=== PATIENT | male | born 1935 | race Caucasian/White ===

== ENCOUNTER → 2017-05-22 | Outpatient (REF) | payer MEDICARE | LOC: M LAB REF 16:44 | PROVIDERS: ATTEND Surgery | DX: C44.319 Basal cell carcinoma of skin of other parts of face (principal) ==

== ENCOUNTER → 2017-06-03 | Outpatient (CLI) | payer MEDICARE ==
[~2017-06-03] VITALS: Ht 180.3 cm; Wt 92.1 kg
[~2017-06-03] MED LIST: NS 1,000 ML IV ONE
--- NOTE | 2017-06-03 07:47 | ROOR ---
Patient Name: Wayne Sutton Procedure Date: 06/03/2017 7:30 AM Date of : 1935 Age: 82 Room: [facility] Gender: Male Note Status: Finalized Procedure: Colonoscopy Indications: High risk colon cancer surveillance: Personal history of colonic polyps, Last colonoscopy: July 2013 Providers: Adan REED MD Referring MD: ZULEIKA RODRIGUEZ MD Requesting Provider: Medicines: Monitored Anesthesia Care Complications: No immediate complications. Procedure: Pre-Anesthesia Assessment: - The heart rate, respiratory rate, oxygen saturations, blood pressure, adequacy of pulmonary ventilation, and response to care were monitored throughout the procedure. The Colonoscope was introduced through the anus and advanced to the cecum, identified by appendiceal orifice and ileocecal valve. The colonoscopy was performed without difficulty. The patient tolerated the procedure well. The quality of the bowel preparation was good. Findings: The perianal and digital rectal examinations were normal. (Exam: Complete, Prep: Good or Excellent.) A 5 mm polyp was found in the sigmoid colon. The polyp was sessile. The polyp was removed with a cold snare. Resection and retrieval were complete. Multiple medium-mouthed diverticula were found in the sigmoid colon. Mild inflammation was found in the distal rectum. The exam was otherwise without abnormality on direct and retroflexion views. Impression: - One 5 mm polyp in the sigmoid colon, removed with a cold snare. Resected and retrieved. - Diverticulosis in the sigmoid colon. 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 - The examination was otherwise normal on direct and retroflexion views. Recommendation: - Repeat colonoscopy in 5 years for adenoma surveillance. - Telephone endoscopist for pathology results in 2 weeks. Adan Reed MD Adan REED MD 06/03/2017 7:46:30 AM This report has been signed electronically. Number of Addenda: 0 Note Initiated On: 06/03/2017 7:30 AM Estimated Blood Loss: Estimated blood loss: none.
[2017-06-03 08:05] VITALS: BP 133/69
== END | disposition home or self-care (01) ==
LOC: M OPP 07:01
PROVIDERS: ATTEND Internal Medicine Gastroenterology
DX: Z12.11 Encounter for screening for malignant neoplasm of colon (principal); D12.5 Benign neoplasm of sigmoid colon; K62.7 Radiation proctitis; K57.30 Diverticulosis of large intestine without perforation or abscess without bleeding; Z86.010 Personal history of colon polyps; K57.92 Diverticulitis of intestine, part unspecified, without perforation or abscess without bleeding; M19.90 Unspecified osteoarthritis, unspecified site; Z85.46 Personal history of malignant neoplasm of prostate; Z92.3 Personal history of irradiation; Z87.891 Personal history of nicotine dependence; Z88.2 Allergy status to sulfonamides

== ENCOUNTER 2021-05-23 16:41 | Emergency (ER) | payer MEDICARE ==
[~2021-05-23] VITALS: Ht 177.8 cm; Wt 93.2 kg
[2021-05-23 17:13] LABS: BASO % 0.7 % (0.0-1.0); EOS % 0.7 % (0.0-3.0); HEMATOCRIT 33.4 % (42.0-52.0); HEMOGLOBIN 10.5 g/dl (13.5-17.5); LYMPH # 1.2 10^3/uL (1.5-5.0); LYMPH % 20.5 % (24.0-44.0); MEAN CORPUSCULAR HEMOGLOBIN 26.3 pg (27.0-33.0); MEAN CORPUSCULAR HGB CONC 31.4 g/dl (32.0-36.5); MEAN CORPUSCULAR VOLUME 83.5 fl (80.0-96.0); MONO # 0.7 10^3/uL (0.0-0.8); MONO % 12.4 % (2.0-8.0); NEUTROPHILS # 3.7 10^3/uL (1.5-8.5); NEUTROPHILS % 65.4 % (36.0-66.0); PLATELET COUNT, AUTOMATED 335 10^3/uL (150-450); WHITE BLOOD COUNT 5.7 10^3/uL (4.0-10.0)
--- NOTE | 2021-05-23 17:15 | REP ---
INDICATION: CHEST PAIN. COMPARISON: 06/03/2007 TECHNIQUE: Portable FINDINGS: The technique utilized in obtaining the radiograph has magnified the cardiac silhouette and accentuated the interstitial markings. The superior mediastinal structures are midline. The cardiac silhouette is unremarkable in size, shape, and position. The diaphragmatic surfaces of the lungs are regular, and the costophrenic angles are clear. The pulmonary [place] are clear. The imaged osseous structures are intact. There is evidence of a hiatal hernia. IMPRESSION: There is no acute cardiopulmonary disease. <Electronically signed by Jarrett Upton > 05/23/21 [id number]
[2021-05-23 17:42] LABS: BLOOD UREA NITROGEN 32 MG/DL (7-18); CALCIUM LEVEL 8.8 MG/DL (8.8-10.2); CARBON DIOXIDE LEVEL 23 MEQ/L (21-32); CHLORIDE LEVEL 113 MEQ/L (98-107); CK-MB VALUE MASS 3.1 NG/ML (<3.6); CPK CREATINE PHOSPHOKINASE 177 U/L (39-308); CREATININE FOR GFR 1.24 MG/DL (0.70-1.30); GLOMERULAR FILTRATION RATE 59.3 (>35); GLUCOSE, FASTING 104 MG/DL (70-100); MB/CK RELATIVE INDEX 1.75 (< OR =4); POTASSIUM SERUM 4.5 MEQ/L (3.5-5.1); SODIUM LEVEL 144 MEQ/L (136-145); TROPONIN I < 0.02 NG/ML (< 0.10)
[2021-05-23] MEDS ORDERED: ASPIRIN 81 MG CHEW TABLET PO ONE (19:25)
[2021-05-23 23:38] LABS: CK-MB VALUE MASS 1.9 NG/ML (<3.6); CPK CREATINE PHOSPHOKINASE 143 U/L (39-308); MB/CK RELATIVE INDEX 1.33 (< OR =4); TROPONIN I < 0.02 NG/ML (< 0.10)
[2021-05-24 00:31] VITALS: BP 169/71
--- NOTE | 2021-05-24 17:56 | ECGEPIP ---
[facility] - ED Test Date: 2021-05-23 Pat Name: EMMA LEA Department: Room: - Gender: Male Patient Biller: : 1935 Requested By: JOHANA Valdovinos Order Number: [id number] Reading MD: Brionna Chambers Measurements Intervals [place] Rate: 62 P: -13 SC: 92 QRS: 23 QRSD: 86 T: 22 QT: 416 QTc: 422 Interpretive Statements Sinus rhythm with short SC No prior Electronically Signed on 05-24-2021 17:55:56 EDT by Brionna Chambers
--- NOTE | 2021-05-24 18:00 | ECGEPIP ---
[facility] - ED Test Date: 2021-05-23 Pat Name: EMMA LEA Department: Room: - Gender: Male Card Folder: JOSE MANUEL : 1935 Requested By: SAVANNA Dupree Order Number: [id number] Reading MD: Brionna Chambers Measurements Intervals [place] Rate: 52 P: 4 ND: 104 QRS: 28 QRSD: 84 T: 39 QT: 454 QTc: 422 Interpretive Statements Sinus bradycardia short ND decreased rate 05/23/21 Electronically Signed on 05-24-2021 18:00:07 EDT by Brionna Chambers
== END 2021-05-24 00:43 | disposition home or self-care (01) ==
LOC: M ED 16:41
DX: R07.89 Other chest pain (principal); R00.1 Bradycardia, unspecified; I51.9 Heart disease, unspecified; Z88.2 Allergy status to sulfonamides

== ENCOUNTER → 2021-08-28 | Outpatient (CLI) | payer MEDICARE ==
[2021-08-28 16:12] LABS: BASO % 0.7 % (0.0-1.0); EOS # 0.1 10^3/uL (0.0-0.5); HEMATOCRIT 41.3 % (42.0-52.0); HEMOGLOBIN 13.5 g/dl (13.5-17.5); LYMPH # 1.5 10^3/uL (1.5-5.0); LYMPH % 24.8 % (24.0-44.0); MEAN CORPUSCULAR HGB CONC 32.7 g/dl (32.0-36.5); MEAN CORPUSCULAR VOLUME 91.8 fl (80.0-96.0); MONO # 0.8 10^3/uL (0.0-0.8); MONO % 14.1 % (2.0-8.0); NEUTROPHILS # 3.5 10^3/uL (1.5-8.5); NEUTROPHILS % 59.2 % (36.0-66.0); PLATELET COUNT, AUTOMATED 307 10^3/uL (150-450)
== END ==
LOC: M WUC 10:46
PROVIDERS: ATTEND Internal Medicine
DX: D64.9 Anemia, unspecified (principal)

== ENCOUNTER → 2022-04-29 | Outpatient (CLI) | payer MEDICARE ==
[2022-04-29 16:13] LABS: HEMOGLOBIN 9.3 g/dl (13.5-17.5); MEAN CORPUSCULAR HEMOGLOBIN 26.9 pg (27.0-33.0); MEAN CORPUSCULAR VOLUME 89.6 fl (80.0-96.0); PLATELET COUNT, AUTOMATED 369 10^3/uL (150-450); RED BLOOD COUNT 3.46 10^6/uL (4.30-6.10); WHITE BLOOD COUNT 5.5 10^3/uL (4.0-10.0)
== END ==
LOC: M WUC 11:39
PROVIDERS: ATTEND Internal Medicine Cardiovascular Disease
DX: D64.9 Anemia, unspecified (principal)

== ENCOUNTER → 2022-05-15 | Outpatient (CLI) | payer MEDICARE ==
[~2022-05-15] MED LIST changes: +B-12100010 PO; +CEFD300C41 PO; +FERR1TAB8 PO; +METO1TAB87 PO; +METR-265 PO; -NS 1,000 ML IV ONE; +PANT40TA29 PO; +PROT1TAB2 PO; +RISATAB3 PO; +VALS40TA9 PO; +VALS80TA PO
[2022-05-15 13:19] LABS: HEMATOCRIT 34.6 % (42.0-52.0); HEMOGLOBIN 10.5 g/dl (13.5-17.5); MEAN CORPUSCULAR HEMOGLOBIN 27.3 pg (27.0-33.0); MEAN CORPUSCULAR HGB CONC 30.3 g/dl (32.0-36.5); MEAN CORPUSCULAR VOLUME 90.1 fl (80.0-96.0); PLATELET COUNT, AUTOMATED 327 10^3/uL (150-450); RED BLOOD COUNT 3.84 10^6/uL (4.30-6.10); WHITE BLOOD COUNT 6.8 10^3/uL (4.0-10.0)
== END ==
LOC: M WUC 10:57
PROVIDERS: ATTEND Internal Medicine Cardiovascular Disease
DX: D64.9 Anemia, unspecified (principal)

== ENCOUNTER 2022-05-16 10:24 | Inpatient (IN) | payer MEDICARE ==
[~2022-05-16] VITALS: Ht 177.8 cm; Wt 88.0 kg
[2022-05-16] MEDS: LACTOBACILLUS ACIDOPHILUS CAP (BACID) PO SCH (09:00)
[~2022-05-16 10:24] MED LIST changes: -B-12100010 PO; -CEFD300C41 PO; +CEFDINIR 300 MG CAP (OMNICEF) PO SCH; -FERR1TAB8 PO; -METO1TAB87 PO; -METR-265 PO; -PANT40TA29 PO; -PROT1TAB2 PO; -RISATAB3 PO; -VALS40TA9 PO; -VALS80TA PO
[2022-05-16] MEDS ORDERED: B-12100010 PO (10:34)
[2022-05-16] MEDS ORDERED: METO1TAB87 PO (10:34)
[2022-05-16] MEDS ORDERED: PANT40TA29 PO (10:34)
[2022-05-16 11:07] LABS: BASO % 0.6 % (0.0-1.0); EOS # 0.1 10^3/uL (0.0-0.5); EOS % 1.2 % (0.0-3.0); HEMATOCRIT 37.2 % (42.0-52.0); HEMOGLOBIN 11.7 g/dl (13.5-17.5); LYMPH # 1.4 10^3/uL (1.5-5.0); MEAN CORPUSCULAR HEMOGLOBIN 27.7 pg (27.0-33.0); MEAN CORPUSCULAR HGB CONC 31.5 g/dl (32.0-36.5); MEAN CORPUSCULAR VOLUME 88.2 fl (80.0-96.0); MONO # 0.8 10^3/uL (0.0-0.8); MONO % 12.8 % (2.0-8.0); NEUTROPHILS # 4.1 10^3/uL (1.5-8.5); NEUTROPHILS % 63.1 % (36.0-66.0); PLATELET COUNT, AUTOMATED 314 10^3/uL (150-450); RED BLOOD COUNT 4.22 10^6/uL (4.30-6.10); WHITE BLOOD COUNT 6.5 10^3/uL (4.0-10.0)
[2022-05-16 11:31] LABS: CALCIUM LEVEL 9.5 MG/DL (8.8-10.2); CREATININE FOR GFR 1.26 MG/DL (0.70-1.30); POTASSIUM SERUM 4.1 MEQ/L (3.5-5.1)
[2022-05-16 11:34] LABS: CK-MB VALUE MASS 1.2 NG/ML (<3.6)
[2022-05-16] MEDS ORDERED: ISOVUE-370 76% 100ML VIAL As Ordered ONE (12:41)
[2022-05-16] MEDS ORDERED: NS 500 ML IV ONE (12:45)
[2022-05-16 13:41] LABS: RSV AMPLIFICATION NEGATIVE (NEGATIVE)
[2022-05-16] MEDS ORDERED: ACETAMINOPHEN TAB 650MG DOSE (2X325MG) PO PRN (13:50)
[2022-05-16] MEDS ORDERED: metroNIDAZOLE (FLAGYL) 500MG TABLET PO SCH (14:00)
[2022-05-16] MEDS ORDERED: hydrALAZINE 20MG/ML 1ML VIAL (J0360 PER 20MG) IV PRN (14:05)
[2022-05-16] MEDS ORDERED: DICYCLOMINE 10 MG CAP PO PRN (14:15)
[2022-05-16] MEDS ORDERED: VALS80TA PO (14:29)
[2022-05-16] MEDS ORDERED: FERR1TAB8 PO (14:29)
[2022-05-16] MEDS ORDERED: HOME MED LIST COMPLETE! XX SCH (14:30)
[2022-05-16 14:56] LABS: HEMATOCRIT 33.9 % (42.0-52.0); HEMOGLOBIN 10.7 g/dl (13.5-17.5)
[2022-05-16] MEDS ORDERED: NS 1,000 ML IV SCH (15:00)
[2022-05-16 15:26] LABS: IRON (FE) 42 UG/DL (65-175); PERCENT SATURATION 12.2 % (19.7-50.0); TOTAL IRON BINDING CAPACITY 345 UG/DL (250-450)
[2022-05-16] MEDS: D5W/0.9% SODIUM CHLORIDE 1,000 ML IV SCH (15:51)
[2022-05-16] MEDS ORDERED: lisinopriL 5 MG TAB PO SCH (16:00)
[2022-05-16] MEDS: SUCRALFATE 1 GM TAB PO SCH ×2 (16:29→21:24)
[2022-05-16 16:32] LABS: CK-MB VALUE MASS 1.4 NG/ML (<3.6); MB/CK RELATIVE INDEX 2.75 (< OR =4)
[2022-05-16 17:36] LABS: FOLATE 15.7 NG/ML (>5.4); VITAMIN B12 LEVEL 716 PG/ML (247-911)
[2022-05-16 17:40] LABS: HEMATOCRIT 34.9 % (42.0-52.0); HEMOGLOBIN 10.9 g/dl (13.5-17.5)
[2022-05-16 18:22] LABS: C REACTIVE PROTEIN QUANTITATIV < 0.30 MG/DL (0.00-0.30)
[2022-05-16] MEDS ORDERED: cefTRIAXone SOD 1 GM in D5W MINI-BAG PLUS 50 ML IV SCH (20:00)
[2022-05-16] MEDS: PANTOPRAZOLE 40MG VIAL IV SCH (20:15)
[2022-05-16] MEDS: metroNIDAZOLE 500 MG in IV 1 EA IV SCH (21:24)
[2022-05-16 22:40] LABS: HEMATOCRIT 31.5 % (42.0-52.0)
[2022-05-16 23:04] LABS: CK-MB VALUE MASS 1.6 NG/ML (<3.6); MB/CK RELATIVE INDEX 2.81 (< OR =4)
[2022-05-16 23:06] VITALS: BP 168/74
[2022-05-17 00:28] VITALS: BP 158/71
[2022-05-17] MEDS: D5W/0.9% SODIUM CHLORIDE 1,000 ML IV SCH (00:46)
[2022-05-17 04:24] VITALS: BP 178/81
[2022-05-17 05:38] LABS: HEMATOCRIT 32.3 % (42.0-52.0); HEMOGLOBIN 10.1 g/dl (13.5-17.5); MEAN CORPUSCULAR HEMOGLOBIN 27.3 pg (27.0-33.0); MEAN CORPUSCULAR HGB CONC 31.3 g/dl (32.0-36.5); MEAN CORPUSCULAR VOLUME 87.3 fl (80.0-96.0); PLATELET COUNT, AUTOMATED 277 10^3/uL (150-450); WHITE BLOOD COUNT 4.9 10^3/uL (4.0-10.0)
[2022-05-17] MEDS: metroNIDAZOLE 500 MG in IV 1 EA IV SCH (05:45)
[2022-05-17 05:59] LABS: BLOOD UREA NITROGEN 18 MG/DL (7-18); C REACTIVE PROTEIN QUANTITATIV 0.32 MG/DL (0.00-0.30); CALCIUM LEVEL 7.7 MG/DL (8.8-10.2); CARBON DIOXIDE LEVEL 25 MEQ/L (21-32); CHLORIDE LEVEL 111 MEQ/L (98-107); CREATININE FOR GFR 1.02 MG/DL (0.70-1.30); GLOMERULAR FILTRATION RATE > 60.0 (>35); GLUCOSE, FASTING 107 MG/DL (70-100); POTASSIUM SERUM 3.3 MEQ/L (3.5-5.1); SODIUM LEVEL 140 MEQ/L (136-145)
[2022-05-17] MEDS ORDERED: POTASSIUM CHLORIDE 10MEQ SR TABLET PO ONE (07:15)
[2022-05-17 07:58] VITALS: BP 160/58
[2022-05-17 08:22] LABS: FERRITIN 39 NG/ML (26-388)
[2022-05-17] MEDS: PANTOPRAZOLE 40MG VIAL IV SCH (08:24)
[2022-05-17] MEDS: LACTOBACILLUS ACIDOPHILUS CAP (BACID) PO SCH (08:24)
[2022-05-17] MEDS: SUCRALFATE 1 GM TAB PO SCH ×2 (08:24→13:00)
[2022-05-17] MEDS ORDERED: CEFD300C41 PO (11:19)
[2022-05-17] MEDS ORDERED: RISATAB3 PO (11:19)
[2022-05-17] MEDS ORDERED: METR-265 PO (11:19)
[2022-05-17 11:55] VITALS: BP 121/64
[2022-05-17] MEDS ORDERED: VALS40TA9 PO (11:58)
[2022-05-17] MEDS ORDERED: PROT1TAB2 PO (11:59)
[2022-05-17 12:00] VITALS: BP 120/70
[2022-05-17] MEDS ORDERED: **hydrALAZINE HCL** 25 MG TAB PO SCH (12:00)
== END 2022-05-17 15:08 | disposition home or self-care (01) | DRG 392 ==
LOC: M ED 10:24 → M ED INP 14:19 → ENRESERV 21:56 → M PCU 23:05
PROVIDERS: ADMIT Internal Medicine; ATTEND Internal Medicine
DX: K52.9 Noninfective gastroenteritis and colitis, unspecified (principal); K92.2 Gastrointestinal hemorrhage, unspecified; K92.1 Melena; D64.9 Anemia, unspecified; I10 Essential (primary) hypertension; E61.1 Iron deficiency; Z85.46 Personal history of malignant neoplasm of prostate; Z92.3 Personal history of irradiation; Z90.49 Acquired absence of other specified parts of digestive tract; Z96.652 Presence of left artificial knee joint; Z87.891 Personal history of nicotine dependence; Z20.822 Contact with and (suspected) exposure to COVID-19; I16.0 Hypertensive urgency; Z79.899 Other long term (current) drug therapy; Z88.2 Allergy status to sulfonamides

== ENCOUNTER 2022-06-03 23:02 | Emergency (ER) | payer MEDICARE ==
[~2022-06-03] VITALS: Ht 177.8 cm; Wt 92.3 kg
[2022-06-04 01:55] LABS: BASO % 0.4 % (0.0-1.0); EOS # 0.1 10^3/uL (0.0-0.5); HEMATOCRIT 36.7 % (42.0-52.0); HEMOGLOBIN 11.8 g/dl (13.5-17.5); LYMPH # 1.3 10^3/uL (1.5-5.0); LYMPH % 14.4 % (24.0-44.0); MEAN CORPUSCULAR HEMOGLOBIN 28.4 pg (27.0-33.0); MEAN CORPUSCULAR HGB CONC 32.2 g/dl (32.0-36.5); MEAN CORPUSCULAR VOLUME 88.4 fl (80.0-96.0); MONO % 10.7 % (2.0-8.0); NEUTROPHILS # 6.6 10^3/uL (1.5-8.5); NEUTROPHILS % 73.3 % (36.0-66.0); PLATELET COUNT, AUTOMATED 317 10^3/uL (150-450); RED BLOOD COUNT 4.15 10^6/uL (4.30-6.10)
[2022-06-04 02:26] LABS: ALBUMIN 3.6 GM/DL (3.2-5.2); ALT/SGPT 18 U/L (12-78); BILIRUBIN,DIRECT < 0.1 MG/DL (0.0-0.2); BILIRUBIN,TOTAL 0.4 MG/DL (0.2-1.0); BLOOD UREA NITROGEN 28 MG/DL (7-18); CALCIUM LEVEL 9.1 MG/DL (8.8-10.2); CARBON DIOXIDE LEVEL 28 MEQ/L (21-32); CHLORIDE LEVEL 109 MEQ/L (98-107); CREATININE FOR GFR 1.36 MG/DL (0.70-1.30); GLUCOSE, FASTING 118 MG/DL (70-100); LIPASE 207 U/L (73-393); POTASSIUM SERUM 4.7 MEQ/L (3.5-5.1); SODIUM LEVEL 139 MEQ/L (136-145); TOTAL PROTEIN 6.5 GM/DL (6.4-8.2)
[2022-06-04] MEDS ORDERED: NS 1,000 ML IV ONE (06:20)
[2022-06-04] MEDS ORDERED: ISOVUE-370 76% 100ML VIAL As Ordered ONE (06:30)
[2022-06-04 11:30] VITALS: BP 158/74
[2022-06-04] MEDS ORDERED: METOPROLOL TART 25 MG TABLET PO ONE (11:40)
== END 2022-06-04 12:00 | disposition home or self-care (01) ==
LOC: M ED 23:02
DX: K50.10 Crohn's disease of large intestine without complications (principal); E86.0 Dehydration; K40.90 Unilateral inguinal hernia, without obstruction or gangrene, not specified as recurrent; K57.30 Diverticulosis of large intestine without perforation or abscess without bleeding; I25.10 Atherosclerotic heart disease of native coronary artery without angina pectoris; K44.9 Diaphragmatic hernia without obstruction or gangrene; I10 Essential (primary) hypertension; D50.9 Iron deficiency anemia, unspecified; Z85.46 Personal history of malignant neoplasm of prostate; Z87.891 Personal history of nicotine dependence; Z79.899 Other long term (current) drug therapy; Z88.2 Allergy status to sulfonamides
CPT/HCPCS: 74177; 80048; 80076; 81001; 83690; 85025; 87426; 93005; 99285; Q9967

== ENCOUNTER → 2022-06-03 | Outpatient (CLI) | payer MEDICARE ==
[~2022-06-03] MED LIST changes: +B-12100010 PO; +CEFD300C41 PO; -CEFDINIR 300 MG CAP (OMNICEF) PO SCH; +FERR1TAB8 PO; +METO1TAB87 PO; +METR-265 PO; +PANT40TA29 PO; +PROT1TAB2 PO; +RISATAB3 PO; +VALS40TA9 PO; +VALS80TA PO
[2022-06-03 16:31] LABS: HEMATOCRIT 37.2 % (42.0-52.0); HEMOGLOBIN 11.6 g/dl (13.5-17.5); MEAN CORPUSCULAR HEMOGLOBIN 27.9 pg (27.0-33.0); MEAN CORPUSCULAR HGB CONC 31.2 g/dl (32.0-36.5); MEAN CORPUSCULAR VOLUME 89.4 fl (80.0-96.0); PLATELET COUNT, AUTOMATED 304 10^3/uL (150-450); RED BLOOD COUNT 4.16 10^6/uL (4.30-6.10); WHITE BLOOD COUNT 5.7 10^3/uL (4.0-10.0)
== END ==
LOC: M WUC 13:02
PROVIDERS: ATTEND Internal Medicine Cardiovascular Disease
DX: D64.9 Anemia, unspecified (principal)

== ENCOUNTER → 2022-06-05 | Outpatient (REF) | payer MEDICARE | LOC: M LAB REF 11:32 | PROVIDERS: ATTEND Physician Assistant | DX: K50.10 Crohn's disease of large intestine without complications (principal) ==

== ENCOUNTER → 2022-06-13 | Outpatient (CLI) | payer MEDICARE | LOC: M LABSMTC 10:39 | PROVIDERS: ATTEND Anesthesiology | DX: Z01.812 Encounter for preprocedural laboratory examination (principal); Z20.822 Contact with and (suspected) exposure to COVID-19 ==

== ENCOUNTER 2022-06-18 09:02 | Day surgery (SDC) | payer MEDICARE ==
[~2022-06-18] VITALS: Ht 182.9 cm; Wt 87.5 kg
[~2022-06-18 09:02] MED LIST changes: +LIDOCAINE 2% 100MG/5ML SDV (FOR ANES.) As Ordered ONE; +NS 1,000 ML IV ONE; +fentaNYL 100 MCG/2 ML INJECTION As Ordered ONE; +propofoL 500 MG/50 ML VIAL As Ordered ONE
[2022-06-18 11:20] VITALS: BP 159/67
== END 2022-06-18 11:40 | disposition home or self-care (01) ==
LOC: M OPP 09:02
PROVIDERS: ATTEND Internal Medicine Gastroenterology
DX: K63.5 Polyp of colon (principal); K56.2 Volvulus; K57.30 Diverticulosis of large intestine without perforation or abscess without bleeding; K64.8 Other hemorrhoids; K62.7 Radiation proctitis; R93.3 Abnormal findings on diagnostic imaging of other parts of digestive tract; K44.9 Diaphragmatic hernia without obstruction or gangrene; D62 Acute posthemorrhagic anemia; I10 Essential (primary) hypertension; N40.0 Benign prostatic hyperplasia without lower urinary tract symptoms; Z79.899 Other long term (current) drug therapy; Z88.2 Allergy status to sulfonamides; Z87.19 Personal history of other diseases of the digestive system; Z85.46 Personal history of malignant neoplasm of prostate; Z92.21 Personal history of antineoplastic chemotherapy; Z98.890 Other specified postprocedural states; Z87.891 Personal history of nicotine dependence
CPT/HCPCS: 43235; 45380; 45385; 88305; J3010

== ENCOUNTER → 2022-09-12 | Outpatient (CLI) | payer MEDICARE ==
[~2022-09-12] MED LIST changes: -LIDOCAINE 2% 100MG/5ML SDV (FOR ANES.) As Ordered ONE; +METO25TA4 PO; -NS 1,000 ML IV ONE; -fentaNYL 100 MCG/2 ML INJECTION As Ordered ONE; -propofoL 500 MG/50 ML VIAL As Ordered ONE
== END ==
LOC: M LABSMTC 09:01
PROVIDERS: ATTEND Anesthesiology
DX: Z01.812 Encounter for preprocedural laboratory examination (principal)

== ENCOUNTER 2022-09-17 10:34 | Day surgery (SDC) | payer MEDICARE ==
[~2022-09-17] VITALS: Ht 177.8 cm; Wt 88.2 kg
[~2022-09-17 10:34] MED LIST changes: +ceFAZolin SOD 2 GM in IV 1 EA IV ONE
[2022-09-17] MEDS ORDERED: LR 1,000 ML IV SCH (10:55)
[2022-09-17] MEDS ORDERED: LIDOCAINE 2% 100MG/5ML SDV (FOR ANES.) As Ordered ONE (13:11)
[2022-09-17] MEDS ORDERED: ROCURONIUM BROMIDE 50 MG/5 ML VIAL As Ordered ONE (13:11)
[2022-09-17] MEDS ORDERED: ONDANSETRON 4MG 2ML VIAL As Ordered ONE (13:11)
[2022-09-17] MEDS ORDERED: SUGAMMADEX SODIUM 500 MG/5 ML VIAL (BRIDION) As Ordered ONE (13:11)
[2022-09-17] MEDS ORDERED: propofoL 200 MG/20 ML VIAL As Ordered ONE (13:11)
[2022-09-17] MEDS ORDERED: dexameTHASONE 4 MG/ML 1ML VIAL (J1100 PER 1MG) As Ordered ONE (13:11)
[2022-09-17] MEDS ORDERED: KETOROLAC 60MG 2ML VIAL As Ordered ONE (13:12)
[2022-09-17] MEDS ORDERED: BUPIVACAINE/EPIN 0.25% 30 ML VIAL As Ordered ONE (13:38)
[2022-09-17] MEDS ORDERED: MIDAZOLAM INJ 2MG/2ML VIAL (J2250 PER 1MG) As Ordered ONE (13:40)
[2022-09-17] MEDS ORDERED: fentaNYL 100 MCG/2 ML INJECTION As Ordered ONE ×2 (13:41→14:38)
[2022-09-17] MEDS ORDERED: ePHEDrine SULFATE 25 MG/5 ML(5MG/ML) SYRINGE As Ordered ONE (14:36)
[2022-09-17] MEDS ORDERED: ACETAMINOPHEN 1000MG 100ML IV BTL (OFIRMEV) (J0131 PER 10MG) As Ordered ONE (14:39)
[2022-09-17] MEDS ORDERED: ONDANSETRON 4MG 2ML VIAL IV PRN (15:15)
[2022-09-17] MEDS ORDERED: hydrALAZINE 20MG/ML 1ML VIAL (J0360 PER 20MG) As Ordered ONE (15:24)
[2022-09-17] MEDS: oxyCODONE 5MG TAB PO PRN ×2 (15:37→16:09)
[2022-09-17] MEDS: fentaNYL 100 MCG/2 ML INJECTION IV PRN ×3 (15:59→16:12)
[2022-09-17] MEDS ORDERED: NORCO, ANEXSIA 5/325MG TABLET (HYDROcodone/ACETAMINOPHEN) PO PRN (16:20)
[2022-09-17 16:47] VITALS: BP 141/69
== END 2022-09-17 17:31 | disposition home or self-care (01) ==
LOC: M SDC 10:34
PROVIDERS: ATTEND Surgery
DX: K40.30 Unilateral inguinal hernia, with obstruction, without gangrene, not specified as recurrent (principal); I10 Essential (primary) hypertension; R19.7 Diarrhea, unspecified; Z85.46 Personal history of malignant neoplasm of prostate; Z92.3 Personal history of irradiation; Z87.891 Personal history of nicotine dependence; Z88.2 Allergy status to sulfonamides; N40.0 Benign prostatic hyperplasia without lower urinary tract symptoms; Z79.899 Other long term (current) drug therapy
CPT/HCPCS: 49650; 88304; C1781; J0131; J0690; J1100; J1885; J2250; J2405; J3010; S2900

== ENCOUNTER 2023-04-13 07:31 | Observation (INO) | payer MEDICARE ==
[~2023-04-13] VITALS: Ht 177.8 cm; Wt 91.4 kg
[~2023-04-13 07:31] MED LIST changes: -ceFAZolin SOD 2 GM in IV 1 EA IV ONE
[2023-04-13] MEDS ORDERED: PANT40TA29 PO (07:45)
[2023-04-13] MEDS ORDERED: SUCR1TA PO (07:45)
[2023-04-13 08:22] LABS: BASO % 0.4 % (0.0-1.0); EOS # 0.1 10^3/uL (0.0-0.5); EOS % 1.7 % (0.0-3.0); HEMATOCRIT 29.6 % (42.0-52.0); HEMOGLOBIN 9.1 g/dl (13.5-17.5); LYMPH # 1.1 10^3/uL (1.5-5.0); LYMPH % 13.9 % (24.0-44.0); MEAN CORPUSCULAR HEMOGLOBIN 24.5 pg (27.0-33.0); MEAN CORPUSCULAR HGB CONC 30.7 g/dl (32.0-36.5); MEAN CORPUSCULAR VOLUME 79.8 fl (80.0-96.0); MONO # 0.9 10^3/uL (0.0-0.8); MONO % 12.2 % (2.0-8.0); NEUTROPHILS # 5.4 10^3/uL (1.5-8.5); NEUTROPHILS % 71.5 % (36.0-66.0); PLATELET COUNT, AUTOMATED 273 10^3/uL (150-450); RED BLOOD COUNT 3.71 10^6/uL (4.30-6.10); WHITE BLOOD COUNT 7.5 10^3/uL (4.0-10.0)
[2023-04-13 08:33] LABS: INR 0.99; PARTIAL THROMBOPLASTIN TIME 29.7 SECONDS (24.8-34.2); PROTHROMBIN TIME 13.3 SECONDS (12.5-14.5)
[2023-04-13 08:52] LABS: LIPASE 42 U/L (12-53)
[2023-04-13 08:53] LABS: RSV AMPLIFICATION NEGATIVE (NEGATIVE)
[2023-04-13 08:54] LABS: ALBUMIN 3.3 G/DL (3.2-5.2); ALKALINE PHOSPHATASE 50 U/L (46-116); ALT/SGPT 11 U/L (7.0-40); AST/SGOT 19 U/L (<34); BILIRUBIN,DIRECT 0.2 MG/DL (<0.4); BILIRUBIN,TOTAL 0.6 MG/DL (0.3-1.2); BLOOD UREA NITROGEN 28 MG/DL (9-23); CALCIUM LEVEL 8.4 MG/DL (8.3-10.6); CARBON DIOXIDE LEVEL 24 MMOL/L (20-31); CHLORIDE LEVEL 110 MMOL/L (98-107); CREATININE FOR GFR 1.19 MG/DL (0.70-1.30); GLOMERULAR FILTRATION RATE > 60.0 (>35); GLUCOSE, FASTING 97 MG/DL (74-106); POTASSIUM SERUM 3.8 MMOL/L (3.5-5.1); SODIUM LEVEL 141 MMOL/L (136-145); TOTAL PROTEIN 5.8 G/DL (5.7-8.2)
[2023-04-13 09:25] LABS: IRON (FE) 37 UG/DL (65-175); TOTAL IRON BINDING CAPACITY 370 UG/DL (250-425)
[2023-04-13 09:27] LABS: FERRITIN 14.3 NG/ML (10.5-307.3); FOLATE 17.49 NG/ML (>5.4); VITAMIN B12 LEVEL 847 PG/ML (211-911)
[2023-04-13] MEDS ORDERED: amLODIPine 5 MG TAB PO ONE (09:35)
[2023-04-13] MEDS: GASTROGRAFIN SOLUTION 30ML PO SCH ×2 (09:48→10:18)
[2023-04-13] MEDS ORDERED: ISOVUE-370 76% 100ML VIAL As Ordered ONE (11:47)
[2023-04-13] MEDS ORDERED: ILEVRO OD (16:16)
[2023-04-13] MEDS ORDERED: HOME MED LIST COMPLETE! XX SCH (16:20)
[2023-04-13 16:25] LABS: HEMATOCRIT 29.2 % (42.0-52.0)
[2023-04-13 16:32] VITALS: BP 170/90
[2023-04-13] MEDS: SUCRALFATE 1 GM TAB PO SCH ×2 (17:48→21:16)
[2023-04-13] MEDS: PANTOPRAZOLE 40MG TAB (PROTONIX) PO SCH ×2 (17:48→21:16)
[2023-04-13] MEDS: NS 1,000 ML IV SCH (17:49)
[2023-04-13] MEDS ORDERED: IRON SUCROSE 200 MG in NS 100 ML IV ONE (18:00)
[2023-04-13 18:42] VITALS: BP 174/80
[2023-04-13 20:00] VITALS: BP 180/84
[2023-04-13] MEDS: amLODIPine 5 MG TAB PO SCH (21:16)
[2023-04-13 22:46] LABS: HEMATOCRIT 28.8 % (42.0-52.0); HEMOGLOBIN 8.9 g/dl (13.5-17.5)
[2023-04-14] VITALS: BP 178/68
[2023-04-14] MEDS: hydrALAZINE 20MG/ML 1ML VIAL IV PRN ×2 (00:27→04:37)
[2023-04-14] MEDS: NS 1,000 ML IV SCH (02:10)
[2023-04-14 04:00] VITALS: BP 174/72
[2023-04-14 05:50] VITALS: BP 184/72
[2023-04-14] MEDS ORDERED: VALSARTAN 80 MG TAB (DIOVAN) PO ONE (06:00)
[2023-04-14 06:47] LABS: HEMATOCRIT 29.5 % (42.0-52.0); HEMOGLOBIN 9.2 g/dl (13.5-17.5); MEAN CORPUSCULAR HEMOGLOBIN 24.8 pg (27.0-33.0); MEAN CORPUSCULAR HGB CONC 31.2 g/dl (32.0-36.5); MEAN CORPUSCULAR VOLUME 79.5 fl (80.0-96.0); PLATELET COUNT, AUTOMATED 262 10^3/uL (150-450); RED BLOOD COUNT 3.71 10^6/uL (4.30-6.10); WHITE BLOOD COUNT 5.3 10^3/uL (4.0-10.0)
[2023-04-14 07:13] LABS: BLOOD UREA NITROGEN 15 MG/DL (9-23); CALCIUM LEVEL 8.4 MG/DL (8.3-10.6); CARBON DIOXIDE LEVEL 24 MMOL/L (20-31); CHLORIDE LEVEL 108 MMOL/L (98-107); CREATININE FOR GFR 0.99 MG/DL (0.70-1.30); GLOMERULAR FILTRATION RATE > 60.0 (>35); GLUCOSE, FASTING 90 MG/DL (74-106); MAGNESIUM LEVEL 1.8 MG/DL (1.8-2.4); PHOSPHORUS LEVEL 2.9 MG/DL (2.4-5.1); POTASSIUM SERUM 3.3 MMOL/L (3.5-5.1); SODIUM LEVEL 140 MMOL/L (136-145)
[2023-04-14 07:27] VITALS: BP 156/52
[2023-04-14] MEDS: SUCRALFATE 1 GM TAB PO SCH ×2 (07:38→11:12)
[2023-04-14] MEDS: PANTOPRAZOLE 40MG TAB (PROTONIX) PO SCH (07:38)
[2023-04-14 07:39] VITALS: BP 156/52
[2023-04-14] MEDS: amLODIPine 5 MG TAB PO SCH (07:39)
[2023-04-14] MEDS ORDERED: FERR32TA PO (08:31)
[2023-04-14] MEDS ORDERED: AMLO1TAB24 PO (08:31)
[2023-04-14] MEDS ORDERED: METOPROLOL TART 50 MG TAB PO SCH (09:00)
[2023-04-14] MEDS ORDERED: POTASSIUM CHLORIDE 10MEQ SR TABLET PO SCH (09:00)
[2023-04-14] MEDS ORDERED: FERROUS GLUCONATE 324 MG TAB PO SCH (09:00)
[2023-04-14] MEDS ORDERED: hydrALAZINE 20MG/ML 1ML VIAL IV PRN (10:00)
== END 2023-04-14 12:39 | disposition home or self-care (01) ==
LOC: M ED 07:31 → M ED INP 07:32 → INTOOBSV 15:35 → UNDOADMOB 15:35 → M PCU 16:32 → M ED INP 16:32
PROVIDERS: ADMIT Internal Medicine; ATTEND Internal Medicine
DX: K92.2 Gastrointestinal hemorrhage, unspecified (principal); K57.30 Diverticulosis of large intestine without perforation or abscess without bleeding; D50.9 Iron deficiency anemia, unspecified; I10 Essential (primary) hypertension; K21.9 Gastro-esophageal reflux disease without esophagitis; Z79.899 Other long term (current) drug therapy
CPT/HCPCS: 36415; 71045; 74177; 80048; 80053; 82248; 82607; 82728; 82746; 83550; 83605; 83690; 83735; 84100; 85014; 85018; 85025; 85027; 85384; 85610; 85730; 86850; 86900; 86901; 87507; 87631; 93005; 93041; 94760; 96361; 96374; 96376; 97161; 99285; G0378; J0360; J1756; Q9963; Q9967

== ENCOUNTER → 2023-04-18 | Outpatient (REF) | payer MEDICARE ==
[~2023-04-18] MED LIST changes: +AMLO1TAB24 PO; +FERR32TA PO; +ILEVRO OD; +SUCR1TA PO
[2023-04-18 17:35] LABS: HEMATOCRIT 32.3 % (42.0-52.0); HEMOGLOBIN 9.9 g/dl (13.5-17.5); MEAN CORPUSCULAR HEMOGLOBIN 25.1 pg (27.0-33.0); MEAN CORPUSCULAR HGB CONC 30.7 g/dl (32.0-36.5); MEAN CORPUSCULAR VOLUME 81.8 fl (80.0-96.0); PLATELET COUNT, AUTOMATED 322 10^3/uL (150-450); RED BLOOD COUNT 3.95 10^6/uL (4.30-6.10); WHITE BLOOD COUNT 6.2 10^3/uL (4.0-10.0)
[2023-04-18 17:57] LABS: ALBUMIN 3.6 G/DL (3.2-5.2); ALKALINE PHOSPHATASE 50 U/L (46-116); ALT/SGPT 14 U/L (7.0-40); AST/SGOT 14 U/L (<34); BILIRUBIN,TOTAL 0.4 MG/DL (0.3-1.2); BLOOD UREA NITROGEN 25 MG/DL (9-23); CALCIUM LEVEL 8.7 MG/DL (8.3-10.6); CARBON DIOXIDE LEVEL 27 MMOL/L (20-31); CHLORIDE LEVEL 108 MMOL/L (98-107); CREATININE FOR GFR 1.22 MG/DL (0.70-1.30); GLOMERULAR FILTRATION RATE > 60.0 (>35); GLUCOSE, FASTING 94 MG/DL (74-106); SODIUM LEVEL 141 MMOL/L (136-145); TOTAL IRON BINDING CAPACITY 396 UG/DL (250-425); TOTAL PROTEIN 6.2 G/DL (5.7-8.2)
[2023-04-18 17:58] LABS: IRON (FE) 42 UG/DL (65-175); PERCENT SATURATION 10.6 % (19.7-50.0)
[2023-04-18 17:59] LABS: FOLATE 13.2 NG/ML (>5.4)
[2023-04-18 18:00] LABS: VITAMIN B12 LEVEL 1077 PG/ML (211-911)
[2023-04-18 19:06] LABS: ANISOCYTOSIS 4+; ATYPICAL LYMPH 9 % (0-5); EOSINOPHILS 1 % (0-3); LYMPHOCYTES 25 % (16-44); MONOCYTES 8 % (0-5); NEUTROPHILS 55 % (28-66); PLATELET ESTIMATE NORMAL (NORMAL)
[2023-04-18 19:07] LABS: POIKILOCYTOSIS 2+
== END ==
LOC: M LABWUC 16:32
PROVIDERS: ATTEND Internal Medicine Gastroenterology
DX: D50.9 Iron deficiency anemia, unspecified (principal); R19.7 Diarrhea, unspecified

== ENCOUNTER 2023-04-29 09:40 | Day surgery (SDC) | payer MEDICARE ==
[~2023-04-29] VITALS: Ht 177.8 cm; Wt 89.8 kg
[~2023-04-29 09:40] MED LIST changes: +NS 1,000 ML IV ONE
[2023-04-29] MEDS ORDERED: LIDOCAINE 2% 100MG/5ML SDV (FOR ANES.) As Ordered ONE (11:59)
[2023-04-29] MEDS ORDERED: propofoL 200 MG/20 ML VIAL As Ordered ONE (11:59)
[2023-04-29] MEDS ORDERED: GLYCOPYRROLATE INJ 0.2 MG/ML 2 ML VIAL As Ordered ONE (12:03)
[2023-04-29 12:55] VITALS: BP 166/77
== END 2023-04-29 13:30 | disposition home or self-care (01) ==
LOC: M OPP 09:40
PROVIDERS: ATTEND Internal Medicine Gastroenterology
DX: K57.30 Diverticulosis of large intestine without perforation or abscess without bleeding (principal); D62 Acute posthemorrhagic anemia; K92.1 Melena; K62.7 Radiation proctitis; K64.8 Other hemorrhoids

== ENCOUNTER → 2023-05-09 | Outpatient (CLI) | payer MEDICARE ==
[~2023-05-09] MED LIST changes: -NS 1,000 ML IV ONE
== END ==
LOC: M RAD 13:42
PROVIDERS: ATTEND Internal Medicine Gastroenterology
DX: T18.3XXA Foreign body in small intestine, initial encounter (principal)

== ENCOUNTER → 2023-05-30 | Outpatient (CLI) | payer MEDICARE ==
[2023-05-30 15:22] LABS: BASO % 0.3 % (0.0-1.0); EOS # 0.1 10^3/uL (0.0-0.5); HEMATOCRIT 35.7 % (42.0-52.0); LYMPH # 1.1 10^3/uL (1.5-5.0); MEAN CORPUSCULAR HEMOGLOBIN 25.8 pg (27.0-33.0); MEAN CORPUSCULAR HGB CONC 30.8 g/dl (32.0-36.5); MEAN CORPUSCULAR VOLUME 83.8 fl (80.0-96.0); MONO # 0.7 10^3/uL (0.0-0.8); MONO % 12.5 % (2.0-8.0); NEUTROPHILS # 3.9 10^3/uL (1.5-8.5); NEUTROPHILS % 66.9 % (36.0-66.0); PLATELET COUNT, AUTOMATED 284 10^3/uL (150-450); RED BLOOD COUNT 4.26 10^6/uL (4.30-6.10); WHITE BLOOD COUNT 5.9 10^3/uL (4.0-10.0)
[2023-05-30 15:48] LABS: PERCENT SATURATION 9.9 % (19.7-50.0)
== END ==
LOC: M LAB 13:04
PROVIDERS: ATTEND Internal Medicine Gastroenterology
DX: D50.9 Iron deficiency anemia, unspecified (principal)

== ENCOUNTER → 2023-08-05 | Outpatient (CLI) | payer MEDICARE ==
[2023-08-05 16:42] LABS: HEMATOCRIT 37.4 % (42.0-52.0); HEMOGLOBIN 11.9 g/dl (13.5-17.5); MEAN CORPUSCULAR HEMOGLOBIN 29.2 pg (27.0-33.0); MEAN CORPUSCULAR HGB CONC 31.8 g/dl (32.0-36.5); MEAN CORPUSCULAR VOLUME 91.7 fl (80.0-96.0); PLATELET COUNT, AUTOMATED 285 10^3/uL (150-450); RED BLOOD COUNT 4.08 10^6/uL (4.30-6.10); WHITE BLOOD COUNT 5.9 10^3/uL (4.0-10.0)
[2023-08-05 17:03] LABS: ALBUMIN 3.7 G/DL (3.2-5.2); BILIRUBIN,TOTAL 0.6 MG/DL (0.3-1.2); CALCIUM LEVEL 8.8 MG/DL (8.3-10.6); CREATININE FOR GFR 1.24 MG/DL (0.70-1.30); GLOMERULAR FILTRATION RATE 58.8 (>35); POTASSIUM SERUM 4.5 MMOL/L (3.5-5.1); TOTAL PROTEIN 6.4 G/DL (5.7-8.2)
== END ==
LOC: M WUC 11:48
PROVIDERS: ATTEND Internal Medicine
DX: I10 Essential (primary) hypertension (principal); D64.9 Anemia, unspecified

== ENCOUNTER → 2023-10-08 | Outpatient (CLI) | payer MEDICARE ==
[~2023-10-08] MED LIST changes: -CEFD300C41 PO; +CEFD300C42 PO
[2023-10-08 13:19] LABS: HEMATOCRIT 40.5 % (42.0-52.0); HEMOGLOBIN 13.5 g/dl (13.5-17.5); MEAN CORPUSCULAR HEMOGLOBIN 31.9 pg (27.0-33.0); MEAN CORPUSCULAR HGB CONC 33.3 g/dl (32.0-36.5); MEAN CORPUSCULAR VOLUME 95.7 fl (80.0-96.0); PLATELET COUNT, AUTOMATED 315 10^3/uL (150-450); RED BLOOD COUNT 4.23 10^6/uL (4.30-6.10)
[2023-10-08 13:21] LABS: ALBUMIN 3.5 G/DL (3.2-5.2); BILIRUBIN,TOTAL 0.5 MG/DL (0.3-1.2); CREATININE FOR GFR 1.22 MG/DL (0.70-1.30); POTASSIUM SERUM 4.6 MMOL/L (3.5-5.1); TOTAL PROTEIN 6.4 G/DL (5.7-8.2)
== END ==
LOC: M WUC 10:47
PROVIDERS: ATTEND Internal Medicine
DX: I10 Essential (primary) hypertension (principal); D64.9 Anemia, unspecified

== ENCOUNTER → 2024-04-20 | Outpatient (CLI) | payer MEDICARE ==
[~2024-04-20] MED LIST changes: +CEFD1CAP9 PO; -CEFD300C42 PO
[2024-04-20 14:04] LABS: BASO % 0.5 % (0.0-1.0); EOS # 0.1 10^3/uL (0.0-0.5); EOS % 0.9 % (0.0-3.0); HEMATOCRIT 40.8 % (42.0-52.0); HEMOGLOBIN 13.5 g/dl (13.5-17.5); LYMPH # 1.4 10^3/uL (1.5-5.0); LYMPH % 21.2 % (24.0-44.0); MEAN CORPUSCULAR HEMOGLOBIN 31.5 pg (27.0-33.0); MEAN CORPUSCULAR HGB CONC 33.1 g/dl (32.0-36.5); MEAN CORPUSCULAR VOLUME 95.3 fl (80.0-96.0); MONO # 0.9 10^3/uL (0.0-0.8); MONO % 12.9 % (2.0-8.0); NEUTROPHILS # 4.2 10^3/uL (1.5-8.5); PLATELET COUNT, AUTOMATED 269 10^3/uL (150-450); RED BLOOD COUNT 4.28 10^6/uL (4.30-6.10); WHITE BLOOD COUNT 6.6 10^3/uL (4.0-10.0)
[2024-04-20 14:41] LABS: ALBUMIN 3.6 G/DL (3.2-5.2); ALKALINE PHOSPHATASE 52 U/L (46-116); ALT/SGPT 15 U/L (7.0-40); AST/SGOT 11 U/L (<34); BILIRUBIN,TOTAL 0.6 MG/DL (0.3-1.2); BLOOD UREA NITROGEN 29 MG/DL (9-23); CALCIUM LEVEL 9.1 MG/DL (8.3-10.6); CARBON DIOXIDE LEVEL 30 MMOL/L (20-31); CHLORIDE LEVEL 106 MMOL/L (98-107); CREATININE FOR GFR 1.21 MG/DL (0.70-1.30); GLOMERULAR FILTRATION RATE > 60.0 (>35); GLUCOSE, FASTING 90 MG/DL (74-106); POTASSIUM SERUM 4.3 MMOL/L (3.5-5.1); SODIUM LEVEL 139 MMOL/L (136-145); TOTAL PROTEIN 6.3 G/DL (5.7-8.2)
== END ==
LOC: M WUC 10:31
PROVIDERS: ATTEND Internal Medicine
DX: I10 Essential (primary) hypertension (principal)

== ENCOUNTER → 2024-05-18 | Outpatient (REF) | payer MEDICARE ==
[2024-05-18 17:28] LABS: ALBUMIN 3.5 G/DL (3.2-5.2)
[2024-05-18 17:34] LABS: C REACTIVE PROTEIN QUANTITATIV < 0.40 MG/DL (<1.0)
[2024-05-18 17:35] LABS: IRON (FE) 90 UG/DL (65-175); PERCENT SATURATION 24.9 % (19.7-50.0); TOTAL IRON BINDING CAPACITY 361 UG/DL (250-425)
[2024-05-18 17:38] LABS: FERRITIN 44.7 NG/ML (10.5-307.3)
[2024-05-18 17:59] LABS: BASO % 0.4 % (0.0-1.0); EOS # 0.1 10^3/uL (0.0-0.5); EOS % 1.2 % (0.0-3.0); HEMATOCRIT 40.9 % (42.0-52.0); HEMOGLOBIN 13.5 g/dl (13.5-17.5); LYMPH # 1.3 10^3/uL (1.5-5.0); LYMPH % 19.2 % (24.0-44.0); MEAN CORPUSCULAR HEMOGLOBIN 31.6 pg (27.0-33.0); MEAN CORPUSCULAR VOLUME 95.8 fl (80.0-96.0); MONO % 14.6 % (2.0-8.0); NEUTROPHILS # 4.3 10^3/uL (1.5-8.5); NEUTROPHILS % 64.2 % (36.0-66.0); PLATELET COUNT, AUTOMATED 278 10^3/uL (150-450); RED BLOOD COUNT 4.27 10^6/uL (4.30-6.10); WHITE BLOOD COUNT 6.8 10^3/uL (4.0-10.0)
[2024-05-18 18:16] LABS: ERYTHROCYTE SEDIMENTATION RATE 11 mm/hr (0-20)
== END ==
LOC: M LABWUC 16:22
PROVIDERS: ATTEND Orthopaedic Surgery
DX: M25.561 Pain in right knee (principal)

== ENCOUNTER → 2024-06-14 | Outpatient (CLI) | payer MEDICARE ==
[2024-06-14 14:51] LABS: BASO % 0.6 % (0.0-1.0); EOS # 0.1 10^3/uL (0.0-0.5); EOS % 1.6 % (0.0-3.0); HEMATOCRIT 39.1 % (42.0-52.0); HEMOGLOBIN 13.1 g/dl (13.5-17.5); LYMPH # 1.3 10^3/uL (1.5-5.0); LYMPH % 20.3 % (24.0-44.0); MEAN CORPUSCULAR HEMOGLOBIN 31.8 pg (27.0-33.0); MEAN CORPUSCULAR HGB CONC 33.5 g/dl (32.0-36.5); MEAN CORPUSCULAR VOLUME 94.9 fl (80.0-96.0); MONO # 0.9 10^3/uL (0.0-0.8); MONO % 13.9 % (2.0-8.0); NEUTROPHILS # 3.9 10^3/uL (1.5-8.5); NEUTROPHILS % 63.1 % (36.0-66.0); PLATELET COUNT, AUTOMATED 276 10^3/uL (150-450); RED BLOOD COUNT 4.12 10^6/uL (4.30-6.10); WHITE BLOOD COUNT 6.3 10^3/uL (4.0-10.0)
[2024-06-14 15:24] LABS: CREATININE FOR GFR 1.25 MG/DL (0.70-1.30); GLOMERULAR FILTRATION RATE 58.2 (>35); POTASSIUM SERUM 4.6 MMOL/L (3.5-5.1)
== END ==
LOC: M WUC 10:56
PROVIDERS: ATTEND Orthopaedic Surgery
DX: M17.11 Unilateral primary osteoarthritis, right knee (principal); M25.561 Pain in right knee

== ENCOUNTER → 2025-10-26 | Outpatient (CLI) | payer MEDICARE ==
[2025-10-26 12:50] LABS: BASO # 0.0 10^3/uL (0.0-0.2); BASO % 0.6 % (0.0-1.0); EOS # 0.1 10^3/uL (0.0-0.5); EOS % 1.9 % (0.0-3.0); LYMPH # 1.3 10^3/uL (1.5-5.0); LYMPH % 21.3 % (24.0-44.0); MONO # 0.7 10^3/uL (0.0-0.8); MONO % 11.9 % (2.0-8.0); NEUTROPHILS # 4.0 10^3/uL (1.5-8.5); NEUTROPHILS % 64.0 % (36.0-66.0); PLATELET COUNT, AUTOMATED 323 10^3/uL (150-450)
[2025-10-26 14:25] LABS: ALT/SGPT 10.0 U/L (7.0-40); AST/SGOT 16.0 U/L (<34); CALCIUM LEVEL 8.9 MG/DL (8.3-10.6); CARBON DIOXIDE LEVEL 29.0 MMOL/L (20-31); CHLORIDE LEVEL 106.0 MMOL/L (98-107); CREATININE FOR GFR 1.38 MG/DL (0.70-1.30); GLOMERULAR FILTRATION RATE 49.2 (>35); POTASSIUM SERUM 4.4 MMOL/L (3.5-5.1); SODIUM LEVEL 143.0 MMOL/L (136-145)
== END ==
LOC: M WUC 09:25
PROVIDERS: ATTEND Internal Medicine
DX: D64.9 Anemia, unspecified (principal)